=== PATIENT | female | born 1980 | race Caucasian/White ===

== ENCOUNTER → 2019-11-12 16:26 | Outpatient (CLI) | payer BC, SELFPAY ==
[2019-11-12 17:50] LABS: Anion Gap 6 (5-15); BUN 11 mg/dL (7-18); BUN/Creat Ratio 13.9 RATIO (10-20); Chloride 107 mmol/L (98-107); Creatinine, Serum 0.79 mg/dL (0.55-1.02); EST Glomerular Filtration Rate 86 mL/min (>60); Est Glom Filt Rate - Afr Amer 104 mL/min (>60); Ferritin 25 ng/mL (8-252); Glucose 102 mg/dL (74-106); Potassium 4.1 mmol/L (3.5-5.1); Sodium Level 139 mmol/L (136-145)
== END ==
PROVIDERS: PCP Family Medicine; Referring Provider Family Medicine; Visit Provider Family Medicine
DX: E61.1 Iron deficiency (principal); M25.511 Pain in right shoulder
CPT/HCPCS: 36415; 80048; 82728

== ENCOUNTER → 2021-03-22 12:14 | Outpatient (CLI) | payer BC, SELFPAY | PROVIDERS: PCP Family Medicine; Referring Provider Family Medicine; Visit Provider Family Medicine | DX: R39.9 Unspecified symptoms and signs involving the genitourinary system (principal) | CPT/HCPCS: 87086; 87088 ==

== ENCOUNTER → 2022-06-23 | Outpatient (CLI) | payer BC, SELFPAY ==
--- NOTE | 2022-06-23 15:05 | RAD_ITS ---
INDICATION: CONTUSION OF FOOT EXAMINATION/TECHNIQUE: X-RAY - LEFT XR Foot Min 3 Views 3 VIEWS COMPARISON: None. FINDINGS: SOFT TISSUES: No soft tissue swelling or gas. No radiopaque foreign body. BONES/JOINTS: No acute fracture or subluxation.. Normal alignment. Preservation of the joint space.. No sclerotic or destructive changes observed. RAD/Foot min 3 Views IMPRESSION: No evidence of acute osseous abnormality. Electronically Signed: Sunil Urbina MD at 15:24 EDT ,
== END | disposition home or self-care (01) ==
LOC: MTRAD 15:03
PROVIDERS: PCP Family Medicine; Referring Provider Family Medicine; Visit Provider Family Medicine
DX: S90.32XA Contusion of left foot, initial encounter (principal)
CPT/HCPCS: 73630

== ENCOUNTER → 2022-10-10 | Outpatient (CLI) | payer BC, SELFPAY | END | disposition home or self-care (01) | LOC: LABSPEC 15:04 | PROVIDERS: PCP Family Medicine; Visit Provider Family Medicine | DX: J02.9 Acute pharyngitis, unspecified (principal) | CPT/HCPCS: 87070 ==

== ENCOUNTER → 2023-02-21 | Outpatient (CLI) | payer BC, SELFPAY ==
[2023-02-28 10:09] LABS: HPV APTIMA, High Risk Negative (Negative)
== END | disposition home or self-care (01) ==
LOC: LABSPEC 11:23
PROVIDERS: PCP Family Medicine; Referring Provider Nurse Practitioner Women's Health; Visit Provider Nurse Practitioner Women's Health
DX: Z12.4 Encounter for screening for malignant neoplasm of cervix (principal)
CPT/HCPCS: 87624; 88175; G0145

== ENCOUNTER → 2023-02-28 | Outpatient (CLI) | payer BC, SELFPAY ==
[2023-02-28 09:56] LABS: Hemoglobin A1c 5.3 % (3.8-5.6)
[2023-02-28 15:03] LABS: Progesterone Level < 0.21 ng/mL (See Comment)
[2023-02-28 15:17] LABS: Cholesterol 143 mg/dL (200); High Density Lipoprotein 45 mg/dL; Prolactin 5.2 ng/mL; T4 Free Direct 0.97 ng/dL (0.76-1.46); Triglycerides 60 mg/dL; Very Low Density Lipoprotein 12 mg/dL (5-40)
[2023-03-02 01:07] LABS: DHEA Sulfate 43.3 ug/dL (57.3-279.2); Testosterone Free 1.4 pg/mL (0.0-4.2); Thyroid Peroxidase AB 15 IU/mL (0-34)
== END | disposition home or self-care (01) ==
LOC: PAVLAB 09:12
PROVIDERS: PCP Family Medicine; Referring Provider Nurse Practitioner Women's Health; Visit Provider Nurse Practitioner Women's Health
DX: R63.5 Abnormal weight gain (principal); L68.0 Hirsutism
CPT/HCPCS: 36415; 80061; 82627; 83036; 84144; 84146; 84402; 84439; 84443; 86376; 82626

== ENCOUNTER → 2023-03-12 | Outpatient (CLI) | payer BC, SELFPAY ==
--- NOTE | 2023-03-12 07:59 | BI_ITS ---
MAMMOGRAPHY - BILATERAL SCREENING REASON FOR EXAM: Female, 42 years old. Routine annual screening examination. PERTINENT HISTORY: Grandmother with breast cancer. TECHNIQUE: Digital bilateral breast reji (3D mammographic acquisition) in the CC and MLO projections. 2-D mediolateral oblique (MLO) and craniocaudad (CC) views of both breasts were obtained. CAD: Full Field Digital Mammography with Computer Added Detection was performed. COMPARISON: None. Baseline examination. FINDINGS: Breast Composition: The breasts are heterogeneously dense, which may obscure small masses. Focal cluster microcalcification is seen in the anterior upper central portion of the right breast. The patient will be recalled for additional views including magnification spot views. No other significant abnormalities are identified. BI/SCRN MAMM (CAD)W/REJI BILAT IMPRESSION: Focal cluster of microcalcification in the anterior upper central portion of the right breast. The patient will be recalled for additional views. Recall Side: Right Breast ASSESSMENT CATEGORY: BIRADS Category 0: Incomplete. Need additional imaging evaluation. A letter regarding these results will be sent to the patient by the facility within 30 days. Approximately 10% of breast cancers are not detected by mammography. A normal mammogram should not delay biopsy of a clinically suspicious abnormality. [id number] Electronically Signed: Jeferson Napier MD at 8:58 EDT ,
== END | disposition home or self-care (01) ==
LOC: OPBI 07:58
PROVIDERS: PCP Family Medicine; Referring Provider Nurse Practitioner Women's Health; Visit Provider Nurse Practitioner Women's Health
DX: Z12.31 Encounter for screening mammogram for malignant neoplasm of breast (principal)
CPT/HCPCS: 77063; 77067

== ENCOUNTER → 2023-03-13 | Outpatient (CLI) | payer BC, SELFPAY ==
--- NOTE | 2023-03-13 08:53 | BI_ITS ---
MAMMOGRAPHY - UNILATERAL DIAGNOSTIC: RIGHT BREAST REASON FOR EXAM: Female, 42 years old. Abnormal screening mammogram. PERTINENT HISTORY: Grandmother with breast cancer. TECHNIQUE: Compression magnification views of the right breast in the mediolateral oblique and craniocaudal projections were obtained. CAD: Full Field Digital Mammography with Computer Added Detection was performed. COMPARISON: Comparison is made with prior study dated March 12, 2023. FINDINGS: Breast Composition: The breasts are heterogeneously dense, which may obscure small masses. Microcalcifications are once again seen in the anterior upper central portion of the right breast. Biopsy is recommended. No other significant abnormalities are identified. BI/DIAG MAMM W/CAD, UNILAT IMPRESSION: Cluster of microcalcification is once again seen in the anterior upper central portion of the right breast. Biopsy is recommended. ASSESSMENT CATEGORY: BIRADS Category 4: Suspicious - Biopsy Should Be Considered. A letter regarding these results will be sent to the patient by the facility within 30 days. Approximately 10% of breast cancers are not detected by mammography. A normal mammogram should not delay biopsy of a clinically suspicious abnormality. Electronically Signed: Jeferson Napier MD at 10:44 EDT ,
== END | disposition home or self-care (01) ==
PROVIDERS: PCP Family Medicine; Referring Provider Nurse Practitioner Women's Health; Visit Provider Nurse Practitioner Women's Health
DX: R92.8 Other abnormal and inconclusive findings on diagnostic imaging of breast (principal)
CPT/HCPCS: 77065

== ENCOUNTER → 2023-03-21 | Outpatient (CLI) | payer BC, SELFPAY ==
--- NOTE | 2023-03-21 | BRBX_PTH ---
PATIENT: JADON BUCHANAN LOC: [facility] U#:[id number] AGE/SX: 42/F ROOM: RE03/21/[address]: Dr. Ameya Singh MD : 1980 BED: DIS: 03/21/2023 SPEC #: [id number] RECD: 03/21/23 12:50 STATUS: TRIP REAubree #: [id number] SANTA: 03/21/23 00:[address]: Ameya Singh DEPT: SURGICAL PATHOLOGY RECD BY: Edgard Burgess ENTERED: 03/21/23 12:50 SP TYPE: BREAST BX OTHR DR: Dr. Lex Jesus MD Tissues: Right breast, NOS Procedures: Surgery Specimen Level IV HEADER OPERATION: Right breast stereotactic needle core biopsy PRE-OP DIAGNOSIS: 12 o?clock microcalcifications anterior third TISSUE SUBMITTED: Right breast core tissue ISCHEMIC TIME: 1 minute FIXATION TIME: 11.5 hours MICROSCOPIC DIAGNOSIS Right breast at 12 o?clock, stereotactic core biopsy: Lobular involutional change. Banal microcalcifications. No evidence of malignancy. AM:ailyn 03/22/2023 MICROSCOPIC DESCRIPTION Slides are reviewed. GROSS DESCRIPTION Received in fixative is one container labeled with the patient's name and designated right breast. The specimen consists of multiple irregular and elongated fragments of rendon-white soft tissue that in aggregate measure 2.2 x 1.5 x 0.2 cm. The specimen is totally submitted in one cassette. / AM:ailyn 03/21/2023 TC:5 CPT: 50428
--- NOTE | 2023-03-21 08:40 | PCM.OPRPT ---
Report of Operation Date of Procedure: 03/21/23 Pre-Operative Diagnosis: Microcalcifications of the right breast central breast Post-Operative Diagnosis: Same Surgery/Procedure Performed:: Stereotactic guided core needle biopsy of the right breast with placement of clip Specimen's removed: Right breast biopsies Description of Procedure: Patient was placed into the stereotactic table and the right breast was compressed. Stereotactic views were obtained and the microcalcifications were localized. The skin was prepped and then injected with local anesthetic. A small incision was made with a scalpel. The needle was placed into the breast and stereotactic images were once again obtained confirming that the needle was in correct position. Biopsies were then obtained. The specimens were placed in the x-ray machine and did confirm that microcalcifications were biopsied. The needle was removed and the clip was placed into the breast. Images showed that the clip was in the biopsy cavity. Next pressure was held over the incision and then a Steri-Strip and bandage were placed. Mammogram will be obtained. Patient tolerated the procedure well.
== END | disposition home or self-care (01) ==
PROVIDERS: PCP Family Medicine; Referring Provider Surgery; Visit Provider Surgery
DX: R92.1 Mammographic calcification found on diagnostic imaging of breast (principal)
CPT/HCPCS: 19081; 88305; J7050

== ENCOUNTER → 2024-03-19 | Outpatient (CLI) | payer BC, SELFPAY ==
--- NOTE | 2024-03-19 08:24 | BI_ITS ---
MAMMOGRAPHY - BILATERAL SCREENING REASON FOR EXAM: Female, 43 years old. Routine annual screening examination. PERTINENT HISTORY: Grandmother with breast cancer. Prior right stereotactic breast biopsy. TECHNIQUE: Digital bilateral breast reji (3D mammographic acquisition) in the CC and MLO projections. 2-D mediolateral oblique (MLO) and craniocaudad (CC) views of both breasts were obtained. CAD: Full Field Digital Mammography with Computer Added Detection was performed. COMPARISON: Comparison is made with prior study dated March 13, 2023 and March 12, 2023. FINDINGS: Breast Composition: The breasts are heterogeneously dense, which may obscure small masses. There are no dominant masses or suspicious calcifications. A tissue clip marker is seen in the anterior upper central portion of the right breast. The calcifications have decreased in number as compared to prior study. No other significant abnormalities are identified. BI/SCRN MAMM (CAD)W/REJI BILAT IMPRESSION: Stable bilateral screening mammogram. Yearly follow-up mammogram recommended. (A) ASSESSMENT CATEGORY: BIRADS Category 2: Benign. A letter regarding these results will be sent to the patient by the facility within 30 days. Approximately 10% of breast cancers are not detected by mammography. A normal mammogram should not delay biopsy of a clinically suspicious abnormality. [id number] Electronically Signed: Jeferson Napier MD at 9:35 EDT ,
== END | disposition home or self-care (01) ==
LOC: OPBI 08:24
PROVIDERS: PCP Family Medicine; Referring Provider Surgery; Visit Provider Surgery
DX: Z12.31 Encounter for screening mammogram for malignant neoplasm of breast (principal)
CPT/HCPCS: 77063; 77067

== ENCOUNTER → 2024-12-04 | Outpatient (CLI) | payer BC, SELFPAY ==
--- NOTE | 2024-12-04 15:20 | MRI_ITS ---
PROCEDURE: MRI right knee without IV contrast REASON FOR EXAM: Twisting injury, pain TECHNIQUE: Multisequence multiplanar MR images of the right knee were obtained without the administration of intravenous contrast. COMPARISON: None. FINDINGS Intact medial and lateral menisci. Intact anterior and posterior cruciate ligaments. Mild periligamentous edema surrounding the medial collateral ligament which may relate to low-grade sprain. Lateral collateral ligamentous complex is intact. Mild tendinopathy of the lateral insertion of the quadriceps tendon. Patellar tendon is intact. No focal chondral defects. No joint effusion. Negative for fracture or marrow replacement. No sizable Astudillo's cyst. Ganglion at the origin of the lateral gastrocnemius measuring 1.6 x 2.2 x 2.3 cm. MRI/Lower Ext Joint Only (Routine) IMPRESSION: 1. Intact menisci, cartilage and cruciates. 2. Low-grade sprain of the proximal medial collateral ligament. 3. Mild insertional tendinopathy of the quadriceps tendon laterally. 4. Ganglion at the origin of the lateral gastrocnemius as above. Reading Location: [facility]
== END | disposition home or self-care (01) ==
LOC: MRI 15:14
PROVIDERS: PCP Family Medicine; Referring Provider Orthopaedic Surgery Sports Medicine; Visit Provider Orthopaedic Surgery Sports Medicine
DX: M25.561 Pain in right knee (principal)
CPT/HCPCS: 73721

== ENCOUNTER → 2025-03-20 | Outpatient (CLI) | payer BC, SELFPAY ==
--- NOTE | 2025-03-20 08:00 | BI_ITS ---
EXAM: SCRN MAMM (CAD)W/REJI BILAT 03/20/2025 CLINICAL HISTORY: F, Age 44 y/o , YEARLY TECHNIQUE: Bilateral screening digital breast tomosynthesis with 2D and 3D images. Computer aided detection. COMPARISON: Prior exam(s) dated 03/19/2024, 03/12/2023. FINDINGS: TISSUE DENSITY: The breast tissue is composed of scattered area of fibroglandular density. Bilateral Breast Mammographic Findings: No significant masses, calcifications or other abnormalities are identified. BI/SCRN MAMM (CAD)W/REJI BILAT IMPRESSION: Right Breast: BIRADS 1 NEGATIVE. Left Breast: BIRADS 1 NEGATIVE. OVERALL FINAL ASSESSMENT: BIRADS 1 NEGATIVE. RECOMMENDATION: Routine annual follow-up in 1 Year A letter with findings and recommendations will be mailed to the patient. Reading Location: [id number]
== END | disposition home or self-care (01) ==
LOC: OPBI 07:52
PROVIDERS: PCP Family Medicine; Referring Provider Surgery; Visit Provider Surgery
DX: Z12.31 Encounter for screening mammogram for malignant neoplasm of breast (principal)
CPT/HCPCS: 77063; 77067